=== PATIENT | female | born 1955 | race Caucasian/White ===

== ENCOUNTER → 2024-11-05 | Outpatient (REF) | payer MEDICARE ==
[~2024-11-05] MED LIST: ANACIN PO; B-121000 MC2; B-COMPLEX WITH1 EAC2; CYMBALTA30 MG; DICYCLOMINE HCL10 MG PO; ESCITALOPRAM OX20 MG PO; FUROSEMIDE40 MG PO; HAIR SKIN NAIL1 EACH; HUMIRA(CF)40 MG/0.1; HYDROCHLOROT PO; HYDROCHLOROTHIA25 MG; K2-D3 10,000 U1 EACH; METHOTREXATE2.5 MG PO; ULORIC40 MG PO; Z.0.CALTRATE 600 W1 PO; Z.0.CITALOPRAM HBR20 PO; Z.0.FOLIC ACID1 MG PO; Z.0.HYOMAX-SL0.125 M SL; Z.0.LISINOPRIL10 MG PO; Z.0.LOMOTIL TABLET1 PO; Z.0.LYRICA50 MG PO; Z.0.MELOXICAM7.5 MG PO; Z.0.OMEPRAZOLE20 M1 PO; Z.0.PLAQUENIL200 MG PO; Z.0.PREDNISONE5 MG PO; Z.0.VICODIN 5-5001 E PO; Z.1.METHOTREXATE2.5 PO; [UNRECOGNIZED DRUG - CODE] PO
== END ==
LOC: US 12:20
PROVIDERS: ATTEND Nurse Practitioner Family
DX: R10.9 Unspecified abdominal pain (principal)
CPT/HCPCS: 76700; 76856

== ENCOUNTER → 2024-11-09 | Day surgery (SDC) | payer MEDICARE, OTHER ==
[~2024-11-09] MED LIST changes: +FENTANYL CITRATE/PF 100MCG/2 ML INJ ONE; +GLYCOPYRROLATE INJ 0.2 MG/ML VIAL ONE; +LACTATED RINGER'S 1,000 ML ONE; +LIDOCAINE HCL 2% LOCAL INJ 5 ML SDV VIAL INJ ONE; +ONDANSETRON HCL INJ 2MG/ML 2ML 2 MG/ML VIAL ONE; +PROPOFOL IV EMULSION 50 ML IV ONE
[2024-11-09 12:17] VITALS: TEMP 98.5
[2024-11-09 12:40] VITALS: BP 164/95; PULSE 91; RESP 18; O2SAT 99
== END | disposition home or self-care (01) ==
LOC: OR 09:11
PROVIDERS: ATTEND Internal Medicine Gastroenterology
DX: Z12.11 Encounter for screening for malignant neoplasm of colon (principal); D12.3 Benign neoplasm of transverse colon; K31.7 Polyp of stomach and duodenum; K29.50 Unspecified chronic gastritis without bleeding; K52.9 Noninfective gastroenteritis and colitis, unspecified; K31.89 Other diseases of stomach and duodenum; K21.9 Gastro-esophageal reflux disease without esophagitis; K44.9 Diaphragmatic hernia without obstruction or gangrene; K57.30 Diverticulosis of large intestine without perforation or abscess without bleeding; K64.8 Other hemorrhoids; I10 Essential (primary) hypertension; E78.5 Hyperlipidemia, unspecified; E66.01 Morbid (severe) obesity due to excess calories; G89.29 Other chronic pain; M06.9 Rheumatoid arthritis, unspecified; F32.A Depression, unspecified; Z88.1 Allergy status to other antibiotic agents; Z88.0 Allergy status to penicillin; Z01.810 Encounter for preprocedural cardiovascular examination; Z79.899 Other long term (current) drug therapy; Z68.41 Body mass index [BMI] 40.0-44.9, adult
CPT/HCPCS: 43239; 45380; 45385; 88305; 88342; 93005; J2003; J2405; J2704; J3010; J7121